=== PATIENT | female | born 1985 | race Caucasian/White ===

== ENCOUNTER → 2017-04-12 | Emergency (ER) | payer MEDICAID ==
[~2017-04-12] VITALS: Ht 172.7 cm; Wt 95.5 kg
[~2017-04-12] MED LIST: GABA-532 PO; HYDR-569 PO; IBUP-1984 PO; NAPR-1154 PO; TRAZ-146 PO
[2017-04-12 15:22] LABS: BASOPHILS # (AUTO) 0.1 X10'3 (0-0.2); BASOPHILS % (AUTO) 0.5 % (0-1); EOSINOPHILS # (AUTO) 0.2 X10'3 (0-0.9); EOSINOPHILS % (AUTO) 1.8 % (0-6); HEMATOCRIT 44.3 % (35.0-45.0); HEMOGLOBIN 14.5 g/dl (12.0-16.0); LYMPHOCYTES # (AUTO) 4.8 X10'3 (1.1-4.8); LYMPHOCYTES % (AUTO) 40.9 % (21-51); MEAN CORPUSCULAR HEMOGLOBIN 29.3 PG (27.0-31.0); MEAN CORPUSCULAR HGB CONC 32.8 % (33.0-36.5); MEAN CORPUSCULAR VOLUME 89.4 FL (78-98); MEAN PLATELET VOLUME 8.2 FL (7.4-10.4); MONOCYTES # (AUTO) 0.7 X10'3 (0-0.9); MONOCYTES % (AUTO) 6.4 % (2-12); NEUTROPHILS # (AUTO) 5.9 X10'3 (1.8-7.7); NEUTROPHILS % (AUTO) 50.4 % (42-75); PLATELET COUNT 334 X10'3 (140-440); RED BLOOD COUNT 4.95 X10'6 (4.20-5.60); RED CELL DISTRIBUTION WIDTH 14.2 % (11.5-14.5); WHITE BLOOD COUNT 11.8 X10'3 (4.5-11.0)
[2017-04-12 15:36] LABS: HCG SERUM QL NEGATIVE
[2017-04-12 15:46] VITALS: BP 145/94
[2017-04-12 16:48] LABS: ALANINE AMINOTRANSFERASE 31 U/L (12-78); ALBUMIN 4.2 G/DL (3.4-5.0); ALBUMIN/GLOBULIN RATIO 0.9 (1.1-1.5); ALKALINE PHOSPHATASE 97 IU/L (46-116); ANION GAP 12 (8-16); ASPARTATE AMINO TRANSFERASE 26 U/L (10-37); BILIRUBIN,TOTAL 0.3 MG/DL (0.1-1.0); BLOOD UREA NITROGEN 18 MG/DL (7-18); BUN/CREATININE RATIO 17.3 (6.6-38.0); CALCIUM 9.3 MG/DL (8.5-10.1); CHLORIDE 101 MMOL/L (99-107); CREATININE 1.04 MG/DL (0.40-0.90); GLUCOSE 93 MG/DL (70-104); POTASSIUM 4.4 MMOL/L (3.5-5.1); SODIUM 139 MMOL/L (135-145); TOTAL PROTEIN 8.7 G/DL (6.4-8.2); eGFR 63 ML/MIN
[2017-04-12 16:55] LABS: CREATINE KINASE 105 U/L (26-192)
== END ==
LOC: ER 14:40
DX: Z02.89 Encounter for other administrative examinations (principal); M79.642 Pain in left hand; F15.10 Other stimulant abuse, uncomplicated; Z87.442 Personal history of urinary calculi; Z98.890 Other specified postprocedural states; Z88.8 Allergy status to other drugs, medicaments and biological substances; Z88.1 Allergy status to other antibiotic agents; Z88.6 Allergy status to analgesic agent
CPT/HCPCS: 36415; 80053; 82550; 84703; 85025; 99284

== ENCOUNTER 2019-05-16 18:20 | Emergency (ER) | payer MEDICAID ==
[~2019-05-16] VITALS: Ht 172.7 cm; Wt 90.0 kg
[~2019-05-16 18:20] MED LIST changes: +HYDR-4383 PO; -HYDR-569 PO; -TRAZ-146 PO; +TRAZ-256 PO
--- NOTE | 2019-05-16 19:11 | NUR ---
patient in bed eyes open rr even un labored no observable s/s of acute stress at this time will continue to monitor
--- NOTE | 2019-05-16 19:44 | NUR ---
PATIENT TO X-RAY WITH DEPUTY
[2019-05-16 19:56] VITALS: BP 149/103
[2019-05-16 20:33] LABS: BASOPHILS # (AUTO) 0.1 X10'3 (0-0.2); BASOPHILS % (AUTO) 0.7 % (0-1); EOSINOPHILS # (AUTO) 0.1 X10'3 (0-0.9); HEMOGLOBIN 13.8 g/dl (12.0-16.0); LYMPHOCYTES # (AUTO) 2.1 X10'3 (1.1-4.8); LYMPHOCYTES % (AUTO) 26.3 % (21-51); MEAN CORPUSCULAR HEMOGLOBIN 28.2 PG (27.0-31.0); MEAN CORPUSCULAR HGB CONC 32.9 g/dL (33.0-36.5); MEAN CORPUSCULAR VOLUME 85.6 FL (78-98); MEAN PLATELET VOLUME 8.3 FL (7.4-10.4); MONOCYTES # (AUTO) 0.4 X10'3 (0-0.9); NEUTROPHILS # (AUTO) 5.4 X10'3 (1.8-7.7); PLATELET COUNT 307 X10'3 (140-440); RED BLOOD COUNT 4.91 X10'6 (4.20-5.60); RED CELL DISTRIBUTION WIDTH 16.7 % (11.5-14.5); WHITE BLOOD COUNT 8.1 X10'3 (4.5-11.0)
[2019-05-16 20:40] LABS: CLARITY,URINE CLOUDY (Clear); COLOR,URINE YELLOW (Yellow); GLUCOSE, URINE NEGATIVE (Neg); KETONES,URINE NEGATIVE (Neg); LEUKOCYTE ESTERASE ,URINE MODERATE (Neg); NITRITES, URINE NEGATIVE (Neg); OCCULT BLOOD,URINE TRACE-INTACT (Neg); PROTEIN,URINE NEGATIVE (Neg); UROBILINOGEN,URINE 0.2 E.U/dL (0.2-1.0)
[2019-05-16 20:40] LABS: ALANINE AMINOTRANSFERASE 15 U/L (12-78); ALBUMIN 3.5 G/DL (3.4-5.0); ALBUMIN/GLOBULIN RATIO 0.9 (1.1-1.5); ALKALINE PHOSPHATASE 100 IU/L (46-116); ANION GAP 7 (8-16); ASPARTATE AMINO TRANSFERASE 10 U/L (10-37); BILIRUBIN,TOTAL 0.1 MG/DL (0.1-1.0); BLOOD UREA NITROGEN 19 MG/DL (7-18); BUN/CREATININE RATIO 19.6 (6.6-38.0); CALCIUM 9.1 MG/DL (8.5-10.1); CHLORIDE 106 MMOL/L (99-107); CREATININE 0.97 MG/DL (0.40-0.90); GLUCOSE 114 MG/DL (70-104); POTASSIUM 3.8 MMOL/L (3.5-5.1); SODIUM 142 MMOL/L (135-145); TOTAL CARBON DIOXIDE 29.3 MMOL/L (24-32); TOTAL PROTEIN 7.3 G/DL (6.4-8.2); eGFR 67 ML/MIN
[2019-05-16 20:41] LABS: URINE HCG NEGATIVE (NEG)
[2019-05-16 20:43] LABS: UA COLLECTION TYPE CLN CATCH MIDSTREAM
[2019-05-16 20:54] LABS: BACTERIA,URINE 2+ /HPF (Neg); RBC,URINE 0-2 /HPF (0-2)
[2019-05-16 20:55] LABS: SQUAMOUS EPITHELIAL CELL,UR MANY /LPF (FEW)
[2019-05-16 20:58] LABS: TRICHOMONAS,URINE FEW /HPF (NEGATIVE)
== END 2019-05-16 21:04 ==
LOC: ER 18:21
DX: T18.3XXA Foreign body in small intestine, initial encounter (principal); F15.90 Other stimulant use, unspecified, uncomplicated; Z86.14 Personal history of Methicillin resistant Staphylococcus aureus infection; Z98.890 Other specified postprocedural states; Z56.0 Unemployment, unspecified; Z88.1 Allergy status to other antibiotic agents; Z88.8 Allergy status to other drugs, medicaments and biological substances; Z79.899 Other long term (current) drug therapy; X83.8XXA Intentional self-harm by other specified means, initial encounter; Y93.89 Activity, other specified; Y92.149 Unspecified place in prison as the place of occurrence of the external cause; Y99.8 Other external cause status
CPT/HCPCS: 36415; 71045; 74018; 80053; 81001; 81025; 85025; 99284

== ENCOUNTER 2019-08-07 08:47 | Emergency (ER) | payer MEDICAID ==
[~2019-08-07] VITALS: Ht 172.7 cm; Wt 8.0 kg
[2019-08-07 09:02] VITALS: BP 163/109
[2019-08-07 09:31] LABS: URINE HCG NEGATIVE (NEG)
[2019-08-07 09:36] LABS: CLARITY,URINE CLOUDY (Clear); COLOR,URINE YELLOW (Yellow); GLUCOSE, URINE NEGATIVE (Neg); KETONES,URINE NEGATIVE (Neg); LEUKOCYTE ESTERASE ,URINE TRACE (Neg); NITRITES, URINE NEGATIVE (Neg); OCCULT BLOOD,URINE SMALL (Neg); PROTEIN,URINE NEGATIVE (Neg); UROBILINOGEN,URINE 0.2 E.U/dL (0.2-1.0)
[2019-08-07 09:40] LABS: UA COLLECTION TYPE CLN CATCH MIDSTREAM
[2019-08-07 09:41] LABS: BACTERIA,URINE 3+ /HPF (Neg); HYALINE CASTS 0-3 /LPF (NEGATIVE); SQUAMOUS EPITHELIAL CELL,UR MANY /LPF (FEW)
[2019-08-07 09:42] LABS: RBC,URINE 0-2 /HPF (0-2); WBC,URINE 30-50 /HPF (0-4)
[2019-08-07] MEDS ORDERED: azithromycin 250mg tablet PO ONE (10:20)
[2019-08-07] MEDS ORDERED: CefTRIAXone 250MG IM Kit w/LIDOcaine IM ONE (10:20)
[2019-08-07 11:49] LABS: CLARITY,URINE SLIGHTLY CLOUDY (Clear); COLOR,URINE YELLOW (Yellow); GLUCOSE, URINE NEGATIVE (Neg); KETONES,URINE NEGATIVE (Neg); LEUKOCYTE ESTERASE ,URINE TRACE (Neg); NITRITES, URINE NEGATIVE (Neg); OCCULT BLOOD,URINE TRACE-INTACT (Neg); PROTEIN,URINE NEGATIVE (Neg); UROBILINOGEN,URINE 0.2 E.U/dL (0.2-1.0)
[2019-08-07 12:06] LABS: UA COLLECTION TYPE CLN CATCH MIDSTREAM
[2019-08-07 12:08] LABS: BACTERIA,URINE 2+ /HPF (Neg); WBC,URINE 20-30 /HPF (0-4)
[2019-08-07 12:09] LABS: RBC,URINE 0-2 /HPF (0-2); SQUAMOUS EPITHELIAL CELL,UR MODERATE /LPF (FEW); WBC CLUMPS,URINE FEW /HPF (NEGATIVE)
== END 2019-08-07 12:01 | disposition home or self-care (01) ==
LOC: ER 08:48
DX: A64 Unspecified sexually transmitted disease (principal); N89.8 Other specified noninflammatory disorders of vagina; F15.90 Other stimulant use, unspecified, uncomplicated; F17.200 Nicotine dependence, unspecified, uncomplicated; Z56.0 Unemployment, unspecified; Z72.89 Other problems related to lifestyle; Z98.890 Other specified postprocedural states; Z86.14 Personal history of Methicillin resistant Staphylococcus aureus infection; Z87.442 Personal history of urinary calculi
CPT/HCPCS: 36415; 81001; 81025; 87088; 87491; 87591; 96372; 99283; J0696; 87077

== ENCOUNTER 2019-09-17 20:36 | Emergency (ER) | payer MEDICAID ==
[~2019-09-17] VITALS: Ht 172.7 cm; Wt 104.3 kg
[2019-09-17 20:37] VITALS: BP 195/122
== END 2019-09-17 21:14 | disposition left against medical advice (07) ==
LOC: ER 20:36
DX: R20.0 Anesthesia of skin (principal); Z53.21 Procedure and treatment not carried out due to patient leaving prior to being seen by health care provider

== ENCOUNTER 2019-09-28 02:30 | Emergency (ER) | payer MEDICAID ==
[~2019-09-28] VITALS: Ht 172.7 cm; Wt 102.1 kg
[2019-09-28 02:42] VITALS: BP 165/106
[2019-09-28 03:43] LABS: CLARITY,URINE CLEAR (Clear); COLOR,URINE YELLOW (Yellow); GLUCOSE, URINE NEGATIVE (Neg); KETONES,URINE NEGATIVE (Neg); LEUKOCYTE ESTERASE ,URINE NEGATIVE (Neg); NITRITES, URINE NEGATIVE (Neg); OCCULT BLOOD,URINE TRACE-INTACT (Neg); PROTEIN,URINE NEGATIVE (Neg); UROBILINOGEN,URINE 0.2 E.U/dL (0.2-1.0)
[2019-09-28 03:58] LABS: UA COLLECTION TYPE NON-SPECIFIED
[2019-09-28 03:59] LABS: BACTERIA,URINE FEW /HPF (Neg); RBC,URINE 0-2 /HPF (0-2); SQUAMOUS EPITHELIAL CELL,UR FEW /LPF (FEW)
--- NOTE | 2019-09-28 04:40 | NUR ---
PT HAS BEEN GONE FOR APPROXIMATELY 20 MINS. HER PARTNER STATES SHE LEFT AND DOES NOT PLAN ON COMING BACK. DR. RHODES MADE AWARE. PT WAS NOT SEEN. SHE PROVIDED A URINE SAMPLE PRIOR TO LEAVING.
== END 2019-09-28 04:47 | disposition left against medical advice (07) ==
LOC: ER 02:30
DX: R30.9 Painful micturition, unspecified (principal); Z53.21 Procedure and treatment not carried out due to patient leaving prior to being seen by health care provider
CPT/HCPCS: 81001; 87077; 87088; 87186

== ENCOUNTER 2020-05-27 04:44 | Emergency (ER) | payer MEDICAID ==
[~2020-05-27] VITALS: Ht 172.7 cm; Wt 100.0 kg
--- NOTE | 2020-05-27 05:08 | NUR ---
pt boyfriend titi #[phone]. attempted to call per pt request and no answer. voicemail left.
[2020-05-27] MEDS ORDERED: NALO4SPR BOTHNARES (05:34)
[2020-05-27 05:42] VITALS: BP 196/129
== END 2020-05-27 05:45 | disposition home or self-care (01) ==
LOC: ER 04:45
DX: I10 Essential (primary) hypertension (principal); F11.10 Opioid abuse, uncomplicated; F15.90 Other stimulant use, unspecified, uncomplicated; F19.90 Other psychoactive substance use, unspecified, uncomplicated; Z87.442 Personal history of urinary calculi; Z86.14 Personal history of Methicillin resistant Staphylococcus aureus infection; Z98.890 Other specified postprocedural states; Z72.89 Other problems related to lifestyle; Z56.0 Unemployment, unspecified; Z88.1 Allergy status to other antibiotic agents; Z88.8 Allergy status to other drugs, medicaments and biological substances; Z79.899 Other long term (current) drug therapy
CPT/HCPCS: 70450; 82948; 99284

== ENCOUNTER 2021-04-03 03:25 | Emergency (ER) | payer MEDICAID ==
[~2021-04-03] VITALS: Ht 172.7 cm; Wt 90.9 kg
[~2021-04-03 03:25] MED LIST changes: +NALO4SPR BOTHNARES
[2021-04-03 04:04] VITALS: BP 176/116
--- NOTE | 2021-04-03 06:40 | NUR ---
I WENT OUT TO THE [facility] TO ASSIST PT TO A TRIAGE ROOM TO PROVIDE CARE OUT OF THE COLD. WHILE WALKING TO THE LOBBY A MAN WALKED UP AND STARTED TO FOLLOW US INTO THE LOBBY. I ASKED THE PT IF SHE KNEW HIM AND HE REPLIED "YES, IM HER BOYFRIEND". I EXPLAINED THAT HE IS NOT ABLE TO COME BACK WITH THE PT AT THIS TIME DUE TO HER POTENTIAL FOR COVID PER HER SYMPTOMS. THE MAN YELLED OUT "I HAVE COVID". I EXPLAINED HE IS WELCOME TO CHECK IN TO BE SEEN IF HE NEEDS MEDICAL ATTENTION HOWEVER HE IS NOT ABLE TO COME IN AT THIS TIME. THE PT THEN TURNED AND STARTED WALKING TO THE PARKING LOT. I ASKED IF SHE WAS NO LONGER WANTING CARE, PT SAID "IM GOING TO [facility]." AT THIS POINT THE MAN STARTED YELLING SAYING "WE HAVE BEEN OUT HERE FOR 4 HOURS, DO YOU THINK THATS APPROPRIATE?" I EXPLAINED THAT WE PROVIDE EMERGENCY SERVICES BASED ON EMERGENT NEED AND WE ARE HAPPY TO SEE BOTH OF THEM SOON WE ARE ABLE TO DO SO. PT CONTINUED TO WALK TO BUS STOP THE MAN WAS YELLING "BYE". I NOTIFIED MY CHARGE NURSE WELL PROVIDER.
== END 2021-04-03 07:50 | disposition left against medical advice (07) ==
LOC: ER 03:26
DX: J00 Acute nasopharyngitis [common cold] (principal); R05.9 Cough, unspecified; R09.89 Other specified symptoms and signs involving the circulatory and respiratory systems; Z53.21 Procedure and treatment not carried out due to patient leaving prior to being seen by health care provider